=== PATIENT | male | born 2000 | race Caucasian/White ===

== ENCOUNTER → 2021-02-06 15:09 | Outpatient (BNVA) | payer SELFPAY | PROVIDERS: PCP Nurse Practitioner Family; Visit Provider Internal Medicine | DX: Z02.79 Encounter for issue of other medical certificate (principal) ==

== ENCOUNTER → 2023-02-03 13:50 | Outpatient (BNVA) | payer SELFPAY | PROVIDERS: PCP Nurse Practitioner Family; Visit Provider Physician Assistant | DX: Z02.79 Encounter for issue of other medical certificate (principal) ==

== ENCOUNTER 2023-12-08 09:50 | Outpatient (AMB) | payer OTHER, SELFPAY ==
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
[2023-12-08 10:04] VITALS: BP 122/74; PULSE 74; O2SAT 98; BMI 29.2
== END 2023-12-08 13:09 | disposition home or self-care (01) ==
LOC: HO.HMGC 09:50
PROVIDERS: PCP Nurse Practitioner Family; Visit Provider Nurse Practitioner Family
DX: N50.812 Left testicular pain (principal); R35.0 Frequency of micturition
CPT/HCPCS: 99213

== ENCOUNTER 2023-12-08 10:39 | Outpatient (REF) | payer OTHER, SELFPAY ==
[2023-12-08 13:29] LABS: MANUAL DIFF FLAG NO
[2023-12-08 13:30] LABS: Basophils Absolute Auto 0.1 X10*3/uL (0.0-0.2); Eosinophils Absolute Auto 0.2 X10*3/uL (0.0-0.4); Eosinophils Percent Auto 2.6 % (0-4); Hematocrit 51.2 % (42.0-52.0); Hemoglobin 17.7 g/dl (14.0-18.0); Imm Gran Abs Auto 0.03 X10*3/uL (0.00-0.03); Imm Gran Pct Auto 0.4 % (0.0-0.4); Lymphocytes Absolute Auto 2.3 X10*3/uL (1.2-4.9); Mean Corpuscular HGB Conc 34.6 g/dl (31.0-36.0); Mean Corpuscular Hemoglobin 32.6 pg (27.0-33.0); Mean Corpuscular Volume 94.3 fL (80.0-98.0); Mean Platelet Volume 9.9 fL (9.4-12.4); Monocytes Absolute Auto 0.7 X10*3/uL (0.1-1.2); Monocytes Percent Auto 10.8 % (2-11); Neutrophils Absolute Auto 3.5 x10*3/uL (2.0-8.3); Neutrophils Percent Auto 51.2 % (45-73); Platelet Count 294 X10*3/uL (160-400); Red Blood Count 5.43 X10*6/uL (4.60-5.80); Red Cell Distribution Width 12.1 % (11.0-16.0); White Blood Count 6.9 X10*3/uL (4.8-10.8)
[2023-12-08 14:01] LABS: Alanine Aminotransferase 39 U/L (0-40); Albumin Level 4.6 g/dL (3.5-5.0); Anion Gap 12 (12-20); Aspartate Amino Transferase 22 U/L (5-37); Bilirubin Direct 0.2 mg/dL (0.0-0.5); Bilirubin Total 0.4 mg/dL (0.0-1.0); Blood Urea Nitrogen 11 mg/dL (9-16); Carbon Dioxide 26 mmol/L (22-29); Chloride 105 mmol/L (96-108); Estimated Glomerular Filt Rate > 60; Glucose Random 73 mg/dL (60-115); Sodium 139 mmol/L (135-145); Total Protein 8.4 g/dL (6.5-8.0)
[2023-12-08 14:13] LABS: Alkaline Phosphatase 96 U/L (39-117)
[2023-12-09 08:10] LABS: HBS Num1 12.32 mIU/mL (0-7.99); HBsAGNum1 0.34 S/CO (0.00-0.99); Hepatitis B Surface Antigen Negative (Negative); ~HepC Num1 1.72 S/CO (0.00-0.79); ~Hepatitis B Surface Antibody REACTIVE (Nonreactive); ~Hepatitis C Antibody Reactive (Nonreactive)
[2023-12-10 10:02] LABS: Hepatitis B Core Antibody IgM NON-REACTIVE (NON-REACTIVE)
[2023-12-11 07:49] LABS: TS Negative Control Passed; TS Panel A 1; TS Panel B 0; TS Positive Control Passed; TSpotTB Negative (Negative)
== END 2023-12-08 10:40 | disposition home or self-care (01) ==
LOC: HO.HMGCLDS 10:39
PROVIDERS: PCP Nurse Practitioner Family; Referring Provider Physician Assistant; Visit Provider Nurse Practitioner Family
DX: Z11.1 Encounter for screening for respiratory tuberculosis (principal); L05.91 Pilonidal cyst without abscess; L73.2 Hidradenitis suppurativa; Z79.899 Other long term (current) drug therapy
CPT/HCPCS: 36415; 80048; 80076; 85025; 86481; 86705; 86706; 86803; 87340

== ENCOUNTER 2023-12-20 12:49 | Outpatient (REF) | payer OTHER, SELFPAY ==
--- NOTE | ~2023-12-20 | US_ITS ---
EXAMINATION: US SCROTUM CLINICAL INFORMATION: Left testicular pain. COMPARISON: None available. TECHNIQUE: A sonogram of the scrotum was performed assessing multani-scale appearance and color Doppler flow. Spectral Doppler analysis of the arterial and venous flow were performed in the testes bilaterally. FINDINGS: RIGHT: Right testicle measures 3.84 x 2.08 x 3.60 cm, volume 15.0 mL. No focal testicular parenchymal lesions are visualized. Spectral Doppler analysis of the arterial and venous flow is normal in the right testis. Right epididymal head is normal in size. No right hydrocele is seen. Small varicocele Right epididymal Doppler flow is normal. LEFT: Left testicle measures 4.29 x 1.88 x 3.15 cm, volume 13.3 mL. No focal testicular parenchymal lesions are visualized. Spectral Doppler analysis of the arterial and venous flow is normal in the left testis. Left epididymal head is normal in size. No left hydrocele is seen. Small varicocele. Left epididymal Doppler flow is normal. US/US scrotum IMPRESSION: Small bilateral varicoceles.
== END 2023-12-20 12:50 | disposition home or self-care (01) ==
LOC: HO.HMGCX 12:49
PROVIDERS: PCP Nurse Practitioner Family; Visit Provider Nurse Practitioner Family
DX: N50.812 Left testicular pain (principal)
CPT/HCPCS: 76870

== ENCOUNTER 2023-12-24 11:05 | Outpatient (AMB) | payer OTHER, SELFPAY ==
--- NOTE | 2023-12-24 11:10 | A.OFFVIS_ITS ---
Intake Vital Signs 3 12/24/23 11:16 Height 6 ft 3 in Weight 235 lb 2 oz BMI 29.4 BP 165/85 H Blood Pressure Location Lt brachial Position Sitting Pulse 92 Intake Visit Reasons: pilonidal cyst Intake Note: Patient is seen in office for evaluation and treatment of a pilonidal cyst. Pt c/o: onset 5 months, lump in the area, admits to discharge yellow , hot to the touch at times, not on antbx, denies n/v/d/c Copy Operator Required: No Allergies gluten [GLUTEN] Allergy (Unknown, Verified 12/24/23 11:17) SENSITIVITY Medication List - Last Reconciled 12/24/23 by Nikolay Mueller MD No Known Home Meds HPI HPI Comments 2 History of Present Illness0 Details 23-year-old male patient presenting for evaluation of pilonidal cyst. This 1st became infected approximately 5 months ago. He underwent incision and drainage by his grizzly worker. Since this time he continues to report episodes of pain, redness, swelling, and discharge from the site. 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 He denies any current fever or chills. [facility] Medical History Chondromalacia of knee Cervical neck pain with evidence of disc disease Shoulder pain, bilateral HTN (hypertension) Nodular acne Surgical History Right knee meniscal tear Right knee meniscal tear Family History Father No problems noted. Mother No problems noted. Social History Housing: House Patient Tobacco Use Status: Current everyday Tobacco user Cigarettes Per Day: 10 Years Smoked: 2 years e-Cigarette/Vaping Use: Never Used Second Hand Smoke Exposure: Yes Current occupational status: employed Cognitive needs: No Hearing needs: No Vision needs: No Review of Systems Const All systems reviewed & are unremarkable except as noted in HPI and below Physical Exam Const General: cooperative and no acute distress Nutritional Appearance: well nourished Orientation/consciousness: patient oriented x3 Limitations: no limitations HEENT Head: Yes normocephalic and Yes atraumatic Ears: hearing grossly normal bilaterally Resp Effort & Inspection: normal respiratory effort, no audible wheezes, no cough and no respiratory distress Cardio Jugular venous distension: no JVD GI Inspection: Yes normal to inspection Back/Spine/Pelvis Other: Area of chronic scarring in the left gluteal wall measuring approximately 3 cm in diameter. No fluctuance or discharge noted to palpation. Back/spine/pelvis image: 2 1. Area of chronic scarring from recurrent pilonidal cyst infections left gluteal wall. Skin Other: Warm, dry, no rash Neuro General: patient oriented x3 Extrem General: Yes no clubbing, cyanosis or edema Assessment & Plan Assessment & Plan (1) Pilonidal cyst: Code(s): L05.91 - Pilonidal cyst without abscess Plan 23-year-old male patient with recurring episode of pilonidal cyst abscess involving the left gluteal cleft. He has had persistent symptoms for the past 5 months and this is unlikely to improve given the chronic scarring identified on examination. I recommended a pilonidal cystectomy and after discussion of the procedure, risks, and alternatives, he consents to the surgery. He will be scheduled as a short-stay surgery at his earliest convenience. Coding Level of Care Code New Pt Level 4 (89488) Diagnoses Pilonidal cyst L05.91
[2023-12-24 11:16] VITALS: BP 165/85; PULSE 92; BMI 29.4
== END 2023-12-24 11:27 | disposition home or self-care (01) ==
PROVIDERS: PCP Nurse Practitioner Family; Visit Provider Surgery
DX: L05.91 Pilonidal cyst without abscess (principal)
CPT/HCPCS: 99204

== ENCOUNTER → 2023-12-24 11:05 | Outpatient (BNVA) | payer OTHER, SELFPAY | PROVIDERS: PCP Nurse Practitioner Family; Visit Provider Surgery ==

== ENCOUNTER 2023-12-24 12:00 | Outpatient (REF) | payer OTHER, SELFPAY ==
[2023-12-24 13:42] LABS: Appearance Urine Clear; Color Urine Yellow; Glucose Urine UA Negative (Negative); Leukocyte Esterase Urine Negative (Negative); Nitrite Urine Negative (Negative); Urine Blood Negative (Negative); Urine Ketones Negative (Negative); Urine Protein Negative (Neg-Trace)
[2023-12-24 13:45] LABS: MANUAL DIFF FLAG NO
[2023-12-24 13:53] LABS: Basophils Absolute Auto 0.1 X10*3/uL (0.0-0.2); Eosinophils Absolute Auto 0.2 X10*3/uL (0.0-0.4); Eosinophils Percent Auto 2.9 % (0-4); Hematocrit 49.9 % (42.0-52.0); Hemoglobin 17.3 g/dl (14.0-18.0); Imm Gran Abs Auto 0.02 X10*3/uL (0.00-0.03); Imm Gran Pct Auto 0.3 % (0.0-0.4); Lymphocytes Absolute Auto 2.3 X10*3/uL (1.2-4.9); Mean Corpuscular HGB Conc 34.7 g/dl (31.0-36.0); Mean Corpuscular Hemoglobin 32.8 pg (27.0-33.0); Mean Corpuscular Volume 94.7 fL (80.0-98.0); Mean Platelet Volume 9.6 fL (9.4-12.4); Monocytes Absolute Auto 0.8 X10*3/uL (0.1-1.2); Monocytes Percent Auto 11.3 % (2-11); Neutrophils Absolute Auto 3.6 x10*3/uL (2.0-8.3); Neutrophils Percent Auto 51.5 % (45-73); Platelet Count 283 X10*3/uL (160-400); Red Blood Count 5.27 X10*6/uL (4.60-5.80)
[2023-12-24 14:33] LABS: Alanine Aminotransferase 36 U/L (0-40); Albumin Level 4.3 g/dL (3.5-5.0); Alkaline Phosphatase 87 U/L (39-117); Anion Gap 12 (12-20); Aspartate Amino Transferase 21 U/L (5-37); Bilirubin Total 0.3 mg/dL (0.0-1.0); Blood Urea Nitrogen 10 mg/dL (9-16); Calcium 9.8 mg/dL (8.4-10.2); Carbon Dioxide 28 mmol/L (22-29); Chloride 107 mmol/L (96-108); Estimated Glomerular Filt Rate > 60; Glucose Random 82 mg/dL (60-115); Potassium 3.9 mmol/L (3.3-5.1); Sodium 143 mmol/L (135-145); Total Protein 8.1 g/dL (6.5-8.0)
[2023-12-24 14:39] LABS: TSH reflex Free T4 0.77 uIU/mL (0.32-4.0)
[2023-12-28 16:03] LABS: HCV Log PCR <1.18 NOT DETECTED Log IU/mL (NOT DETECTED); HepC Viral Load <15 NOT DETECTED IU/mL (NOT DETECTED)
[2023-12-29 13:39] LABS: Hepatitis C Genotype Not Detected
== END 2023-12-24 12:01 | disposition home or self-care (01) ==
LOC: HO.HMGCLDS 12:00
PROVIDERS: PCP Nurse Practitioner Family; Visit Provider Nurse Practitioner Family
DX: B19.20 Unspecified viral hepatitis C without hepatic coma (principal); R35.0 Frequency of micturition
CPT/HCPCS: 36415; 80053; 81003; 84443; 85025; 87522; 87902

== ENCOUNTER 2024-05-23 14:38 | Outpatient (AMB) | payer OTHER, SELFPAY ==
--- NOTE | 2024-05-23 14:42 | A.OFFVIS_ITS ---
Vital Signs 3 05/23/24 14:48 Height 6 ft 3 in Weight 234 lb 9.149 oz BMI 29.3 Intake Visit Reasons: pilonidal cyst Intake Note: Patient is seen in office for recurring episode of pilonidal cyst abscess involving the left gluteal cleft. Pt c/o: continued discharge, redness not on antbx or meds Band Salvager Required: No Accompanied by: Self / Same As Patient Allergies gluten [GLUTEN] Allergy (Unknown, Verified 05/23/24 14:42) SENSITIVITY HPI Comments Details: 24-year-old male patient returning for re-evaluation of a pilonidal cyst. Since his last evaluation he continues to report episodes of increased pain, itchiness and discharge. Discharge occurs almost weekly but then will spontaneously close. The itchiness is felt constantly. He denies any fever, chills, or other associated symptoms. He returns today to discuss excision of this chronically infected cyst. [facility] Medical History Chondromalacia of knee Cervical neck pain with evidence of disc disease Shoulder pain, bilateral HTN (hypertension) Nodular acne Surgical History Right knee meniscal tear Right knee meniscal tear Family History Father No problems noted. Mother No problems noted. Social History Housing: House Patient Tobacco Use Status: Current everyday Tobacco user Cigarettes Per Day: 10 Years Smoked: 2 years e-Cigarette/Vaping Use: Never Used Second Hand Smoke Exposure: Yes Current occupational status: employed Cognitive needs: No Hearing needs: No Vision needs: No Review of Systems Const All systems reviewed & are unremarkable except as noted in HPI and below Physical Exam Const General: cooperative and no acute distress Nutritional Appearance: well nourished Orientation/consciousness: patient oriented x3 Limitations: no limitations HEENT Head: Yes normocephalic and Yes atraumatic Ears: hearing grossly normal bilaterally Resp Effort & Inspection: normal respiratory effort, no audible wheezes, no cough and no respiratory distress Cardio Jugular venous distension: no JVD GI Inspection: Yes normal to inspection Back/Spine/Pelvis Other: Area of chronic scarring in the left gluteal wall measuring approximately 3 cm in diameter. No fluctuance or discharge noted to palpation. Back/spine/pelvis image: 2 1. Area of scarring in the left gluteal wall with a central punctum noted in the intergluteal cleft Skin Other: Warm, dry, no rash Neuro General: patient oriented x3 Extrem General: Yes no clubbing, cyanosis or edema Assessment & Plan Assessment & Plan (1) Pilonidal cyst: Code(s): L05.91 - Pilonidal cyst without abscess Category: Medical Plan 24-year-old male patient with a chronically infected pilonidal cyst on the left gluteal wall. I recommended a pilonidal cystectomy and after discussion of the procedure, risks, and alternatives, he consents to the surgery. He will be scheduled at his earliest convenience. Coding Level of Care Code Est Pt Level 4 (45914) Diagnoses Pilonidal cyst L05.91
[2024-05-23 14:48] VITALS: BMI 29.3
== END 2024-05-23 14:53 | disposition home or self-care (01) ==
PROVIDERS: PCP Nurse Practitioner Family; Visit Provider Surgery
DX: L05.91 Pilonidal cyst without abscess (principal)
CPT/HCPCS: 99214

== ENCOUNTER → 2024-05-23 14:38 | Outpatient (BNVA) | payer OTHER, SELFPAY | PROVIDERS: PCP Nurse Practitioner Family; Visit Provider Surgery ==

== ENCOUNTER 2024-06-21 10:59 | Day surgery (SDC) | payer OTHER, SELFPAY ==
[2024-06-19 12:39] VITALS: BMI 29.3
--- NOTE | 2024-06-19 15:41 | HO.ANESPROP2 ---
Documented by User: Kelli Tejada NP 06/19/24 15:41 HPI - Anesthesia Eval Consult details Narrative: 24yo M for Excision Pilonidal Cyst PMFSH Active Problems Active Problems: All Active Problems Pilonidal cyst (Acute) Hepatitis C (Acute) Urinary frequency (Acute) Testicular pain, left (Acute) Lesion of face (Acute) Cervical neck pain with evidence of disc disease (Acute) Shoulder pain, bilateral (Acute) Physical exam (Acute) Past Medical History Medical History Chondromalacia of knee Cervical neck pain with evidence of disc disease Shoulder pain, bilateral HTN (hypertension) Nodular acne Family History Family History Father No problems noted. Mother No problems noted. Surgical History Surgical History Right knee meniscal tear Right knee meniscal tear Social History Social History Housing: House Patient Tobacco Use Status: Current everyday Tobacco user Cigarettes Per Day: 10 Years Smoked: 2 years e-Cigarette/Vaping Use: Never Used Second Hand Smoke Exposure: Yes Advance Directives: No Advance Directives Information Provided: Yes Current occupational status: employed Cognitive needs: No Hearing needs: No Vision needs: No Meds Allergies Allergy/AdvReac Type Severity Reaction Status Date / Time gluten [GLUTEN] Allergy Unknown SENSITIVITY Verified 05/23/24 14:42 Home Medications ?Medication ?Instructions ?Recorded ?Confirmed ?Last Taken ?Type No Known Home Meds 07/08/20 06/19/24 Unknown History Exam Height,Weight and Vital Signs: Height 6 ft 3 in Weight 106.4 kg Assessment and Plan Assessment Anesthesia Assessment: Chart Reviewed Documented by User: Jimena Dahl MD 06/21/24 11:54 PMFSH Past Medical History Medical History Chondromalacia of knee Cervical neck pain with evidence of disc disease Shoulder pain, bilateral HTN (hypertension) Nodular acne Family History Family History Father No problems noted. Mother No problems noted. Surgical History Surgical History Right knee meniscal tear Right knee meniscal tear History of Problems with Anesthesia: No Social History Social History Housing: House Patient Tobacco Use Status: Current everyday Tobacco user Cigarettes Per Day: 10 Years Smoked: 2 years e-Cigarette/Vaping Use: Never Used Second Hand Smoke Exposure: Yes Advance Directives: No Advance Directives Information Provided: Yes Current occupational status: employed Cognitive needs: No Hearing needs: No Vision needs: No Meds Allergies Allergy/AdvReac Type Severity Reaction Status Date / Time gluten [GLUTEN] Allergy Unknown SENSITIVITY Verified 05/23/24 14:42 Home Medications ?Medication ?Instructions ?Recorded ?Confirmed ?Last Taken ?Type No Known Home Meds 07/08/20 06/19/24 Unknown History Exam Airway Mallampati Class: III TM Dist: >3cm Neck ROM: Full Loose/Missing/Broken Teeth: No Heart: RRR Lungs: CTA Assessment and Plan Assessment Anesthesia Assessment: Anesthesia Plan Discussed Final Anesthetic Review History of Problems with Anesthesia: No NPO: Yes ASA Class: II Final Preanesthetic Review: Meds/Allgs Chart Reviewed, Consent Obtained/Reviewed and Anes Risks/Benef Reviewed Patient Risk: Low Procedure Risk: Low Anesthetic Plan Anesthetic Plan: GA Disposition: Standard PACU
[2024-06-21 11:49] VITALS: BMI 28.4
[2024-06-21 12:25] VITALS: BP 146/87; PULSE 71; RESP 14; TEMP 36.4; O2SAT 100
[2024-06-21] MEDS: Lactated Ringers 1,000 ML 100 ML IVCONT (12:25)
--- NOTE | 2024-06-21 13:14 | MHC.SHP ---
Pre-Procedural Eval Section A - 24 Hr Update-Section A only Date of Service: 06/21/24 The patient is an INPATIENT: No Changes since office visit: Yes Patient answered all questions; No Cold of Flu in the past 2 weeks, No New Medical Problems and No Changes in Medication The patient has been examined within 24 hours of the surgical procedure. The History & Physical has been completed within 30 days and I have reviewed it.: Yes Section B - Complete if H&P > 30 days Chief Complaint: Pilonidal cyst without abscess Allergies: Allergies Allergy/AdvReac Type Severity Reaction Status Date / Time gluten [GLUTEN] Allergy Unknown SENSITIVITY Verified 05/23/24 14:42 Plan Diagnosis/Plan: Unchanged I have reviewed the history and physical and performed a pertinent physical examination on my patient. No changes have occurred unless specified. Time Spent With Patient Time: Total time managing care of this patient today ____ minutes.
--- NOTE | 2024-06-21 14:10 | P.OP_ITS ---
Operative Note Operative Note Date of Service: 06/21/24 Narrative: Preoperative diagnosis: Pilonidal cyst abscess Postoperative diagnosis: Same Procedure: Pilonidal cystectomy Surgeon: Nikolay Mueller MD Inspector Screen Printing: Erika Murray PA-C Anesthesia: General endotracheal Indications for procedure: 24-year-old male patient with recurrent episode of pilonidal cyst abscess with persistent discomfort associated with the cyst presenting today for pilonidal cystectomy. Operative findings: Chronically inflamed pilonidal cyst Specimen: Pilonidal cyst Estimated blood loss: 20 mL Complications: None Procedure details: Patient was brought to the OR placed in a supine position. After administering general anesthesia he was placed in a prone position. Patient's perianal skin was prepped with Betadine and draped in a sterile fashion. A surgical time-out was called and the consent confirmed. He received preoperative antibiotics and Venodyne boots were in place. Local anesthesia was then infiltrated circumferentially around the pilonidal cyst. An elliptical incision extending to the left gluteal wall was then created with a 15 blade. This was carried out through subcutaneous tissue using electrocautery and down around the cyst wall. Hemostasis was assured at all times using electrocautery. The lesion was passed off the table and sent to pathology for further examination. Wounds were then irrigated with saline solution and suctioned dry. Deep subcutaneous tissue was then reapproximated using interrupted 3-0 Polysorb sutures. Dermis was reapproximated using interrupted 3-0 Polysorb sutures. Skin was closed using interrupted 3-0 nylon sutures in a mattress formation. Sterile dressings were then applied. The patient tolerated the procedure well. Sponge, instrument, and needle counts reported as correct. The patient was transferred to PACU in stable condition.
[2024-06-21 14:16] VITALS: BP 149/106; PULSE 92; RESP 22; TEMP 36.4; O2SAT 98
[2024-06-21 14:21] VITALS: BP 150/101; PULSE 87; RESP 20; O2SAT 97
[2024-06-21 14:25] VITALS: BP 158/98; PULSE 83; RESP 16; O2SAT 97
[2024-06-21 14:30] VITALS: BP 154/93; PULSE 88; RESP 16; O2SAT 99
[2024-06-21 14:45] VITALS: BP 147/87; PULSE 100; RESP 16; TEMP 36.1; O2SAT 96
== END 2024-06-21 15:12 | disposition home or self-care (01) ==
PROVIDERS: PCP Nurse Practitioner Family; Visit Provider Surgery
PROC: (CPT 11771; principal; 2024-06-21 12:30)
DX: L05.91 Pilonidal cyst without abscess (principal); L70.0 Acne vulgaris; I10 Essential (primary) hypertension; K90.41 Non-celiac gluten sensitivity; F17.210 Nicotine dependence, cigarettes, uncomplicated
CPT/HCPCS: 11771; 88304; J2003; J2250; J2704; J3010

== ENCOUNTER → 2024-06-21 10:59 | Outpatient (BNV) | payer OTHER, SELFPAY | PROVIDERS: PCP Nurse Practitioner Family; Visit Provider Surgery | DX: L05.91 Pilonidal cyst without abscess (principal) | CPT/HCPCS: 11771 ==

== ENCOUNTER 2024-06-30 10:41 | Outpatient (AMB) | payer OTHER, SELFPAY ==
--- NOTE | 2024-06-30 10:49 | A.OFFVIS_ITS ---
Vital Signs 06/30/24 10:51 Height 6 ft 3 in Weight 234 lb BMI 29.2 BP 166/88 H Blood Pressure Location Lt brachial Position Sitting Pulse 68 Intake Visit Reasons: S/P pilonidal cystectomy Intake Note: Patient is seen in office for post op assessment post pilonidal cystectomy. Pt c/o: denies any concerns at the time of visit, healing as expected surgery: 06/21/24 Public Safety Telecommunicator Required: No Accompanied by: Self / Same As Patient Allergies gluten [GLUTEN] Allergy (Unknown, Verified 06/30/24 10:51) SENSITIVITY HPI Comments Details: Patient returns 1 week following pilonidal cystectomy. He tolerated the procedure well and reports no problems after the surgery. He denies any discharge from the incision. [facility] Medical History Chondromalacia of knee Cervical neck pain with evidence of disc disease Shoulder pain, bilateral HTN (hypertension) Nodular acne Surgical History History of excision of pilonidal cyst (06/21/24) Right knee meniscal tear Right knee meniscal tear Family History Father No problems noted. Mother No problems noted. Social History Housing: House Are you a primary day care aide to a significant other at home: No Do you presently have visiting nurse or other home services: No Patient Tobacco Use Status: Current everyday Tobacco user Cigarettes Per Day: 10 Years Smoked: 2 years e-Cigarette/Vaping Use: Never Used Second Hand Smoke Exposure: Yes Current occupational status: employed Cognitive needs: No Hearing needs: No Vision needs: No Physical Exam Vital Signs: Last Vital Signs Pulse 68 06/30/24 10:51 BP 166/88 H 06/30/24 10:51 BMI result Body Mass Index 29.2 Const General: comfortable Nutritional Appearance: well nourished Orientation/consciousness: patient oriented x3 Resp Effort & Inspection: normal respiratory effort Back/Spine/Pelvis Other: Pilonidal cyst incision is clean, dry, and intact. All but 3 sutures were removed. Wounds remained well-healed. Neuro General: patient oriented x3 Extrem General: Yes normal to inspection Assessment & Plan Assessment & Plan (1) Pilonidal cyst: Comment: Pilonidal cystectomy-06/21/2024 Code(s): L05.91 - Pilonidal cyst without abscess Category: Medical Plan 24-year-old male patient status post pilonidal cystectomy. His wounds are clean and intact. All but 3 of the sutures removed. I have asked him to return in 1 week to remove the remaining sutures. Coding Level of Care Code Global (05886) Diagnoses Pilonidal cyst L05.91
[2024-06-30 10:51] VITALS: BP 166/88; PULSE 68; BMI 29.2
== END 2024-06-30 10:56 | disposition home or self-care (01) ==
PROVIDERS: PCP Nurse Practitioner Family; Visit Provider Surgery
DX: L05.91 Pilonidal cyst without abscess (principal)
CPT/HCPCS: 99024

== ENCOUNTER → 2024-06-30 10:41 | Outpatient (BNVA) | payer OTHER, SELFPAY | PROVIDERS: PCP Nurse Practitioner Family; Visit Provider Surgery ==

== ENCOUNTER 2024-07-07 10:40 | Outpatient (AMB) | payer OTHER, SELFPAY ==
--- NOTE | 2024-07-07 10:46 | MHC.OFFVIS ---
Vital Signs 07/07/24 10:54 Height 6 ft 3 in Weight 233 lb 11.04 oz BMI 29.2 Pulse 62 Intake Visit Reasons: 1 wk follow up S/P pilonidal cystectomy Intake Note: Patient is seen in office for one week 1 follow up, post pilonidal cystectomy. 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 He reports 1 day with some discharge but generally feels well. There is some soreness from the sutures. He denies fever or chills. [facility] Medical History Chondromalacia of knee Cervical neck pain with evidence of disc disease Shoulder pain, bilateral HTN (hypertension) Nodular acne Surgical History History of excision of pilonidal cyst (06/21/24) Right knee meniscal tear Right knee meniscal tear Family History Father No problems noted. Mother No problems noted. Social History Housing: House Are you a primary human services care specialist to a significant other at home: No Do you presently have visiting nurse or other home services: No Patient Tobacco Use Status: Current everyday Tobacco user Cigarettes Per Day: 10 Years Smoked: 2 years e-Cigarette/Vaping Use: Never Used Second Hand Smoke Exposure: Yes Current occupational status: employed Cognitive needs: No Hearing needs: No Vision needs: No Physical Exam Const General: comfortable Nutritional Appearance: well nourished Orientation/consciousness: patient oriented x3 Resp Effort & Inspection: normal respiratory effort Back/Spine/Pelvis Other: Pilonidal cyst incision is clean, dry, and intact. The remaining 3 sutures removed and wounds found to be well healed. Neuro General: patient oriented x3 Extrem General: Yes normal to inspection Assessment & Plan Assessment & Plan (1) Pilonidal cyst: Comment: Pilonidal cystectomy-06/21/2024 Code(s): L05.91 - Pilonidal cyst without abscess Category: Medical Plan 24-year-old male patient returning now 2 weeks from a pilonidal cystectomy. He tolerated the procedure well the wounds are now well healed. He should continue to keep the area clean especially after a BM. He should return as needed. Coding Level of Care Code Global (39409) Diagnoses Pilonidal cyst L05.91
[2024-07-07 10:54] VITALS: PULSE 62; BMI 29.2
== END 2024-07-07 11:08 | disposition home or self-care (01) ==
PROVIDERS: PCP Nurse Practitioner Family; Visit Provider Surgery
DX: L05.91 Pilonidal cyst without abscess (principal)
CPT/HCPCS: 99024

== ENCOUNTER → 2024-07-07 10:40 | Outpatient (BNVA) | payer OTHER, SELFPAY | PROVIDERS: PCP Nurse Practitioner Family; Visit Provider Surgery ==

== ENCOUNTER → 2025-01-30 10:51 | Outpatient (BNVA) | payer SELFPAY | PROVIDERS: PCP Nurse Practitioner Family; Visit Provider Registered Nurse | DX: Z02.79 Encounter for issue of other medical certificate (principal) ==

== ENCOUNTER 2025-09-10 10:39 | Outpatient (AMB) | payer OTHER, SELFPAY ==
[2025-09-10 10:46] VITALS: BP 130/82; PULSE 96; O2SAT 99
--- NOTE | 2025-09-10 10:46 | MHC.PC.OV ---
Vital Signs 09/10/25 10:46 Weight 211 lb BP 130/82 Pulse 96 Pulse Source Pulse Oximeter Pulse Oximetry (%) 99 Oxygen Delivery Method Room Air Intake Visit Reasons: follow up/INACTIVE INSURANCE SEE OA Ceiling Insulation Blower Required: No Accompanied by: Self / Same As Patient Allergies gluten (GLUTEN) Allergy (Unknown, Verified 09/10/25 10:50) SENSITIVITY Medication List - Last Reconciled 09/10/25 by MARCELINO Gan No Known Home Meds Tobacco use date assessed: 09/10/25 Dental Screening Dental Screen Date: 09/10/25 Did you have a dental visit in the last 12 months?: Yes Did you have a dental problem in the last 6 months where you did not have access to dental care?: No Was dental information given to patient?: Patient has dentist [facility] Medical History Chondromalacia of knee Cervical neck pain with evidence of disc disease Shoulder pain, bilateral HTN (hypertension) Nodular acne Surgical History History of excision of pilonidal cyst (06/21/24) Right knee meniscal tear Right knee meniscal tear Family History Father No problems noted. Mother No problems noted. Social History Housing: House Are you a primary career information specialist to a significant other at home: No Do you presently have visiting nurse or other home services: No Patient Tobacco Use Status: Current everyday Tobacco user Cigarettes Per Day: 10 Years Smoked: 2 years e-Cigarette/Vaping Use: Never Used Second Hand Smoke Exposure: Yes Current occupational status: employed Cognitive needs: No Hearing needs: No Vision needs: No Questionnaire PHQ-9 Over the last 2 weeks, how often have you been bothered by any of the following problems? 1. Little interest or pleasure in doing things: not at all 2. Feeling down, depressed, or hopeless: not at all 3. Trouble falling or staying asleep, or sleeping too much: not at all 4. Feeling tired or having little energy: not at all 5. Poor appetite or overeating: not at all 6. Feeling bad about yourself - or that you are a failure or have let yourself or your family down: not at all 7. Trouble concentrating on things, such as reading the newspaper or watching television: not at all 8. Moving or speaking so slowly that other people could have noticed. Or the opposite - being so fidgety or restless that you have been moving around a lot more than usual: not at all 9. Thoughts that you would be better off or of hurting yourself in some way: not at all Total score: 0 Depression Screening Interpretation: Negative Depression Screening Done: Yes 88648 - PHQ-9 Billing: Yes Source: Developed by Drs. Ronald Lamb, Ritu Krishnamurthy, Franco Bonner and colleagues, with an educational benito from [employer]. Thrive Questionnaire Date Thrive assessed: 12/08/23 I am a: Patient What is your living situation today?: I have a steady place to live Within the past 12 months, did the food you bought not last and you didn't have the money to get more?: Never true Within the past 12 months, did you worry whether your food would run out before you got money to buy more?: Never true Do you have trouble paying for medicines?: No Do you have trouble getting transportation to medical appointments?: No Do you have trouble paying your heating and electricity bill?: No Do you have trouble taking care of your child, family member or friend?: No Do you have trouble with day-to-day activities such as bathing, preparing meals, shopping, managing finances, etc.?: No Are you currently unemployed and looking for a job?: No Are you interested in more education?: No Please select the resources that you would like help with: None Currently or been in a relationship where the following occur: No concerns reported THRIVE Score: 0 AUDIT C Alcohol Use Questionnaire (AUDIT-C) 1. How often do you have a drink containing alcohol?: 2-3 times a week 2. How many drinks containing alcohol do you have on a typical day when you are drinking?: 3 or 4 3. How often do you have six or more drinks on one occasion?: Less than monthly Total Score: 5 Score Reviewed/Action Taken: Yes MOSES-7 AMB Questionnaire MOSES-7 Date MOSES - 7 assessed: 09/10/25 Feeling nervous, anxious, or on edge: 0 = Not at all Not being able to stop or control worryin = Not at all Worrying too much about different things: 0 = Not at all Trouble relaxin = Not at all Being so restless that it is hard to sit still: 0 = Not at all Becoming easily annoyed or irritable: 0 = Not at all Feeling afraid as if something awful might happen: 0 = Not at all Total MOSES-7 score (0-4 normal; 5-9 mild; 10-14 moderate; 15-21 severe): 0 Source: Developed by Drs. Ronald Lamb, Ritu Krishnamurthy, Franco Bonner and colleagues, with an educational benito from [employer]. MOSES-7 Assessment Billing MOSES-7 Assessment Tool: MOSES-7 Assessment 96325 Physical exam (Primary Care) Vital Signs: Last Vital Signs Pulse 96 09/10/25 10:46 BP 130/82 09/10/25 10:46 Pulse Ox 99 09/10/25 10:46 Oxygen Delivery Method Room Air 09/10/25 10:46 Tobacco/Smoking Status: Tobacco use Status Tobacco use date assessed 09/10/25 09/10/25 10:50 Patient Tobacco Use Status Current everyday Tobacco 09/10/25 10:50 e-Cigarette/Vaping Use Never Used 09/10/25 10:50 PHQ-9: PHQ-9 Score PHQ-9: Total score 0 09/10/25 10:50 Depression Screening Interpretation: Negative Thrive Assessment: Date of Thrive Assessment Date Thrive assessed 12/08/23 09/10/25 10:50 Currently or been in a relationship where the following occur: No concerns reported Coding Level of Care Code Est Pt Prev Care 18-39y(16071) Diagnoses Physical exam Z00.00 Additional Codes PHQ-9 - 18462 - PHQ-9 Billing: Yes ([id number]) MOSES-7 Assessment Billing - MOSES-7 Assessment Tool: MOSES-7 Assessment 97224 ([id number]) Assessment & Plan Assessment & Plan (1) Physical exam: Code(s): Z00.00 - Encounter for general adult medical examination without abnormal findings Category: Medical Plan . Orders: Orders Comprehensive Doucette. Panel Fast Today Z00.00 - Encounter for general adult medical examination without abnormal findings TSH reflex Free T4 Today Z00.00 - Encounter for general adult medical examination without abnormal findings Lipid Panel Today Z00.00 - Encounter for general adult medical examination without abnormal findings Complete Blood Count Auto Diff Today Z00.00 - Encounter for general adult medical examination without abnormal findings UA CC w/rflx Micro + Cult Today Z00.00 - Encounter for general adult medical examination without abnormal findings
--- OUTSIDE RECORDS SUMMARY | 2025-09-10 13:11 | XMS_ITS | Clinical Summary ---
Author Organization [facility] Prior to 02/17/[address] [place] [address] Care Team Providers Care Physical Chemist Name Role Phone Nikolay Mcqueen Primary Care Provider [phone] Allergies No known active allergies Medications No known medications Social History Tobacco Use Types Packs/Day Years Used Date Smoking Tobacco: Every Day Cigarettes Tobacco Cessation:Ready to Q uit: Not Asked; Counseling Given: Not Answered Alcohol Use Standard Drinks/Week Comments Yes 0 (1 standard drink = 0.6 oz pur e alcohol) Sex and Gender Information Value Date Recorded Sex Assigned at Not on file Gender Identity Not on file Sexual Orientation Not on file Job Start Date Occupation Industry Not on file Not on file Not on file Last Filed Vital Signs Vital Sign Reading Time Taken Comments Blood Pressure 143/86 01/05/2024 10:38 AM EDT Pulse 80 01/05/2024 10:38 AM EDT Temperature - - Respiratory Rate - - Oxygen Saturation - - Inhaled Oxygen Concentration - - Weight - - Height - - Body Mass Index - - Plan of Treatment Health Maintenance Due Date Last Done Comments Hepatitis B Vaccines (1 of 3 - 3-dose series) 1999 Hepatitis C Screening 1999 COVID-19 Vaccine (#1) 1999 Pneumococcal Vaccine (1 of 2 - PCV) 2005 Depression Screening 2011 Preventative Health Evaluation 2017 Tobacco Cessation Counseling 2017 Influenza Vaccine (#1) 2025 DTap / Tdap / Td (2 - Td or Tdap) 09/16/2029 019 RSV Ped < 20 months Aged Out No longe r eligible based on patient's age to complete this topic Care Teams Physical Chemist Relationship Specialty Start Date End Date Nikolay Mcqueen [address] [facility] [place] [address] PCP - General Family Medicine 12/23/23
--- OUTSIDE RECORDS SUMMARY | 2025-09-10 13:11 | XMS_ITS | Clinical Summary ---
Author Organization [facility] Address [address] [place] [address] Care Team Providers Care Director Loss Prevention Name Role Phone SissyNikolay landeros Paco JULIAN Primary Care Provider Allergies No known active allergies Medications No known medications Active Problems No known active problems Family History Relation Name Status Comments Father Alive Mother Alive Social History Tobacco Use Types Packs/Day Years Used Date Smoking Tobacco: Every Day Cigarettes 0.5 Started: 2019 Smokeless Tobacco: Never Tobacco Cessation:Ready to Q uit: Not Asked; Counseling Given: Not Answered Alcohol Use Standard Drinks/Week Comments Yes 0 (1 standard drink = 0.6 oz pur e alcohol) 6 beers per week Sex and Gender Information Value Date Recorded Sex Assigned at Not on file Legal Sex Male 7:01 PM EST Gender Identity Not on file Sexual Orientation Not on file Last Filed Vital Signs Vital Sign Reading Time Taken Comments Blood Pressure 150/80 07/18/2024 11:32 AM EDT Pulse 116 07/18/2024 11:32 AM EDT Temperature - - Respiratory Rate - - Oxygen Saturation - - Inhaled Oxygen Concentration - - Weight 107 kg (235 lb) 07/18/2024 11:32 AM EDT Height 193 cm (6' 4 ) 07/18/2024 11:32 AM EDT Body Mass Index 28.61 07/18/2024 11:32 AM EDT Plan of Treatment Health Maintenance Due Date Last Done Comments HIV Screening 02/09/2012 HPV Vaccines (1 - Male 3-dose series) 2014 DTaP/Tdap/Td Vaccines (1 - Tdap) 2018 Hepatitis B Vaccines (1 of 3 - 19+ 3-dose series) 2018 Pneumococcal Vaccine: Pediat lora (0-5 Years) and At-Risk Patients (6 to 49 Years) (1 of 2 - PCV) 2018 Influenza Vaccine 04/20/2025 11/21/2010 COVID-19 Vaccine ( season) 2025 Hepatitis C Virus Screening Completed 07/22, 07/18/2024, 12/24/2023 Insurance [facility] H[facility] Care Teams Director Loss Prevention Relationship Specialty Start Date End Date Nikolay Mcqueen NP [address] [place] [address] PCP - General Family Medicine 12/24/23
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
--- OUTSIDE RECORDS SUMMARY | 2025-09-10 13:11 | XMS_ITS | Clinical Summary ---
Author Organization [facility] Address [address] [place] [id number] Phone Care Team Providers Care Envelope Addresser Name Role Phone Nikolay Mcqueen NP Primary Care Provider + Allergies No known active allergies Medications No known medications Immunizations Immunization Administration Dates Next Due Tdap 09/16/2019 Social History Tobacco Use Types Packs/Day Years Used Date Smoking Tobacco: Every Day Alcohol Use Standard Drinks/Week Comments Yes 0 (1 standard drink = 0.6 oz pur e alcohol) Education Answer Date Recorded Are you interested in more education? Not on abbey e 01/15/2023 Are you concerned about learning? Not on file 01/15/2023 No 01/15/2023 No 01/15/2023 Digital Access Answer Date Recorded No 02/13/2023 No 02/13/2023 No 02/13/2023 Reliable internet access at home? Not on file 02/13/2023 Device with a working camera? Not on file Sex and Gender Information Value Date Recorded Sex Assigned at Male 09/16/2019 2:11 AM EST Legal Sex Male 12:32 PM EDT Gender Identity Male 09/16/2019 2:11 AM EST Sexual Orientation Straight 09/16/2019 2: 11 AM EST Last Filed Vital Signs Vital Sign Reading Time Taken Comments Blood Pressure 153/93 09/16/2019 2:08 AM EST Pulse 135 09/16/2019 2:08 AM EST Temperature 36.5 C (97.7 F) 09/16/2019 2:08 AM EST Respiratory Rate 16 09/16/2019 2:08 AM EST Oxygen Saturation 100% 09/16/2019 2:08 AM EST Inhaled Oxygen Concentration - - Weight 95.3 kg (210 lb) 09/16/2019 2:08 AM EST Height 193 cm (6' 4 ) 09/16/2019 2:08 AM EST Body Mass Index 25.56 09/16/2019 2:08 AM EST Plan of Treatment Health Maintenance Due Date Last Done Comments DEPRESSION SCREENING 2011 SMOKING Hx and SMOKELESS TOBACCO SCREENING 02/09/2012 HEPATITIS C SCREENING 2017 HIV ONE-TIME SCREENING (18-65 YEARS) 2017 PNEUMOCOCCAL VACCINES (0-49 years) (1 of 2 - PCV) 2018 08/11/2000, 05/14/2000 INFLUENZA VACCINE (#1) 2025 11/21/2010, 2008 COVID-19 VACCINE ( - 2024- season) 2025 Adult Td,Tdap Booster 05/07/2030 05/07/2020 , 09/16/2019, 11/21/2010 HIB VACCINES Completed 05/14/2000, 08/21, 1999, Additional history exists HPV VACCINES Completed 02/14/2013, 0702/2012, 12/11/2011 HEPATITIS A VACCINES Completed 09/06/2014, 03/07/20 14 MENINGOCOCCAL VACCINES (ACWY) Completed 07/09/2015, 11/21/2010 MENINGOCOCCAL VACCINES (B) Aged Out N o longer eligible based on patient's age to complete this topic Medical Devices Not on file Insurance [facility] PPO CIGNA PPO CIGNA PPO CIGNA PPO CIGNA PPO Member Subscriber Plan / Payer (Ef fective 2021-) Name:Robi England Relation to Subscriber:Self Name:Robi England Payer ID:[id number] ([facility]) Type:PPO Address: [place] [id number] CIGNA PPO CIGNA PPO CIGNA PPO CIGNA PPO Care Teams Envelope Addresser Relationship Specialty Start Date End Date Nikolay Mcqueen NP [address] [place] [address] PCP - General Family Medicine 09/16/19 Additional Source Comments The information contained in this document represents components of the legal health record. It is not the complete legal health record.[facility]
== END 2025-09-10 11:19 | disposition home or self-care (01) ==
PROVIDERS: PCP Nurse Practitioner Family; Visit Provider Nurse Practitioner Family
DX: Z00.00 Encounter for general adult medical examination without abnormal findings (principal)

== ENCOUNTER → 2025-09-10 10:39 | Outpatient (BNVA) | payer OTHER, SELFPAY | PROVIDERS: PCP Nurse Practitioner Family; Visit Provider Nurse Practitioner Family | DX: Z13.31 Encounter for screening for depression (principal); Z13.39 Encounter for screening examination for other mental health and behavioral disorders | CPT/HCPCS: 96127 ==